=== PATIENT | female | born 1995 | race Caucasian/White ===

== ENCOUNTER 2020-07-13 07:59 | Observation (INO) | payer MEDICAID ==
[~2020-07-13] VITALS: Ht 170.2 cm; Wt 93.9 kg
== END 2020-07-13 12:11 | disposition home or self-care (01) ==
LOC: 8 EST LDRP 07:59
PROVIDERS: ADMIT Obstetrics & Gynecology; ATTEND Obstetrics & Gynecology
DX: O62.9 Abnormality of forces of labor, unspecified (principal); Z3A.40 40 weeks gestation of pregnancy
CPT/HCPCS: 59025; 76805; 76818; G0378; 99281